=== PATIENT | male | born 1945 | race Caucasian/White ===

== ENCOUNTER 2017-01-16 05:36 | Emergency (ER) | payer OTHER, BC ==
[~2017-01-16] VITALS: Ht 177.8 cm; Wt 125.3 kg
[~2017-01-16 05:36] MED LIST: ASPCH81X PO; LISIPOW PO; LPT40 PO
[2017-01-16 05:38] VITALS: TEMP 36.5; Ht 177.8 cm; Wt 125.3 kg
[2017-01-16] MEDS ORDERED: ALBUT/IPRATROP 3MG/0.5MG NEB 3 ML VIAL INH STA (05:54)
[2017-01-16 06:39] VITALS: O2SAT 95
[2017-01-16 06:44] VITALS: PULSE 69; O2SAT 96
--- NOTE | 2017-01-16 06:46 | DIAGNOSTIC IMAGING REPORT ---
RIGHT RIBS UNILATERAL WITH PA CHEST CLINICAL HISTORY: Right rib pain. Cough. COMPARISON STUDY: No previous studies for comparison. FINDINGS: The erect chest reveals no pneumothorax. There is no lobar consolidation. There is mild basilar interstitial thickening. There is a calcified granuloma the right lung base. No right-sided rib fractures are visualized. IMPRESSION: No evidence of pneumothorax. No right-sided rib fractures are visualized. Electronically signed by: Tigre Emerson M.D. 01/16/2017 6:44 AM Dictated Date/Time: 01/16/2017 6:44 AM
[2017-01-16 06:56] LABS: BASO % 0.1 %; BASO ABS # 0.01 K/uL (0-0.2); COMPLETE YES; EOS % 1.9 %; IG% 0.1 %; LYMPH % 15.3 %; LYMPH ABS # 1.29 K/uL (1.2-3.4); MEAN CELL VOLUME 90.1 fL (80-100); MEAN CORPUSCULAR HEMOGLOBIN 30.9 pg (25-34); MEAN CORPUSCULAR HGB CONC 34.4 g/dl (32-36); MEAN PLATELET VOLUME 10.3 fL (7.4-10.4); MONO % 14.2 %; NEUT % 68.4 %; PLATELET COUNT 336 K/uL (130-400); RED BLOOD COUNT 4.33 M/uL (4.7-6.1); WHITE BLOOD COUNT 8.44 K/uL (4.8-10.8)
[2017-01-16 07:15] LABS: BUN/CREATININE RATIO 14.2 (10-20); CALCIUM 8.4 mg/dl (8.5-10.1); CREATININE 0.81 mg/dl (0.60-1.40); POTASSIUM 3.8 mmol/L (3.5-5.1)
[2017-01-16 07:20] LABS: ALB/GLOB RATIO 0.9 (0.9-2); CKMB/CK RATIO 0.6 (0-3.0)
[2017-01-16] MEDS ORDERED: OXYC-57 PO (07:34)
--- NOTE | 2017-01-16 07:36 | EMERGENCY ROOM VISIT NOTE ---
History First contact with patient: 05:43 Chief Complaint: COUGH Stated Complaint: COUGH, PAIN RIGHT BELOW RIBS Nursing Triage Summary: cough for a week, on abx for 2 days, developed right rib pain today after coughing History of Present Illness The patient is a 71 year old male who presents to the Emergency Department by private vehicle for evaluation of his ongoing cough with RIGHT sided rib pain. He has had a cough for the past few weeks. He was seen at his primary care provider's office on Friday and prescribed azithromycin as well as Tessalon Perles. He reports that over the last few days he has coughed so hard that he developed pain to the anterior aspect of the RIGHT-sided ribs. He reports pain with cough as well as with movement and touch. He only has pain with the deep cough and touch, however. He reports no pain at rest. He rates his current discomfort as 0/10. He denies any fevers, chills, headaches, dizziness, lightheadedness, left-sided chest pain, palpitations, shortness of breath, hemoptysis, nausea, vomiting, or abdominal pain. Review of Systems A complete 10-point Review of Systems was discussed with the patient, with pertinent positives and negatives listed in the History of Present Illness. All remaining Review of Systems questions can be considered negative unless otherwise specified. Past Medical/Surgical History Medical Problems: (1) No Known Active Medical Problems Family History Cancer Lung disease Stroke Social History Smoking Status: Former Smoker Smokeless Tobacco Use: No Drug Use: none Marital Status: Housing Status: lives with family Occupation Status: employed Current/Historical Medications Scheduled Aspirin (Aspirin Chewable), 81 MG PO DAILY Atorvastatin (Atorvastatin Calcium), 20 MG PO DAILY Azithromycin (Azithromycin), 1 TAB PO DIRECTED Benzonatate (Tessalon Perles), 200 MG PO DIRECTED Lisinopril (Bulk) (Lisinopril), 5 MG PO DAILY Scheduled PRN Oxycodone/Acetaminophen 5MG/325MG (Percocet 5MG/325MG), 1-2 TABS PO Q6 PRN for Pain Allergies Coded Allergies: Acetaminophen (Unverified Allergy, Severe, GI ISSUES, 01/16/17) Oxycodone (Unverified Allergy, Severe, GI ISSUES, 01/16/17) Physical Exam Vital Signs Date Time Temp Pulse Resp B/P Pulse Ox O2 Delivery O2 Flow Rate FiO2 01/16/17 07:45 139/83 01/16/17 06:44 69 18 141/91 96 Room Air 01/16/17 06:39 95 Room Air 01/16/17 06:26 77 01/16/17 06:09 94 Room Air 01/16/17 05:38 36.5 86 20 165/88 93 Room Air Pain Rating (0-10): 0 Physical Exam VITAL SIGNS - Vital signs and nursing notes were reviewed. GENERAL - 71-year-old male appearing his stated age who is in no acute distress. Communicates well with provider and answers questions appropriately. LUNGS - Chest wall symmetric without accessory muscle use, intercostals retractions, or central cyanosis. Normal vesicular breath sounds CTA B/L. No wheezes, rales, or rhonchi appreciated. CARDIAC - RRR with S1/S2. No murmur, rubs, or gallops appreciated. Moderate reproducible tenderness to palpation appreciated over the anterior lower RIGHT ribs. ABDOMEN - Abdominal contour obese and without pulsations or visible masses. BS normoactive all four quadrants. No tenderness, palpable masses, hepatosplenomegaly, or ascites noted. EXTREMITIES - No clubbing or peripheral cyanosis. No pretibial edema present. +3 /5 radial and dorsalis pedis pulses palpated throughout. +5/5 strength noted in UE/LE bilaterally. NEUROLOGIC - Cranial nerves II through XII grossly intact. Sensory intact to light touch throughout. PSYCH - A&Ox3 and cooperates fully with examiner. Pt is very pleasant and interacts well with examiner. Medical Decision & Procedures ER Provider Diagnostic Interpretation: Radiological imaging and reports were reviewed by myself. Radiologist's Interpretation as follows: RIGHT RIBS UNILATERAL WITH PA CHEST CLINICAL HISTORY: Right rib pain. Cough. COMPARISON STUDY: No previous studies for comparison. FINDINGS: The erect chest reveals no pneumothorax. There is no lobar consolidation. There is mild basilar interstitial thickening. There is a calcified granuloma the right lung base. No right-sided rib fractures are visualized. IMPRESSION: No evidence of pneumothorax. No right-sided rib fractures are visualized. Laboratory Results 01/16/17 06:30 Red Blood Count 4.33, Mean Corpuscular Volume 90.1, Mean Corpuscular Hemoglobin 30.9, Mean Corpuscular Hemoglobin Concent 34.4, Mean Platelet Volume 10.3, Neutrophils (%) (Auto) 68.4, Lymphocytes (%) (Auto) 15.3, Monocytes (%) (Auto) 14.2, Eosinophils (%) (Auto) 1.9, Basophils (%) (Auto) 0.1, Neutrophils # (Auto ) 5.77, Lymphocytes # (Auto) 1.29, Monocytes # (Auto) 1.20, Eosinophils # (Auto ) 0.16, Basophils # (Auto) 0.01 01/16/17 06:30 Test 01/16/17 06:30 01/16/17 06:39 White Blood Count 8.44 K/uL (4.8-10.8) Red Blood Count 4.33 M/uL (4.7-6.1) Hemoglobin 13.4 g/dL (14.0-18.0) Hematocrit 39.0 % (42-52) Mean Corpuscular Volume 90.1 fL (80-100) Mean Corpuscular Hemoglobin 30.9 pg (25-34) Mean Corpuscular Hemoglobin Concent 34.4 g/dl (32-36) Platelet Count 336 K/uL (130-400) Mean Platelet Volume 10.3 fL (7.4-10.4) Neutrophils (%) (Auto) 68.4 % Lymphocytes (%) (Auto) 15.3 % Monocytes (%) (Auto) 14.2 % Eosinophils (%) (Auto) 1.9 % Basophils (%) (Auto) 0.1 % Neutrophils # (Auto) 5.77 K/uL (1.4-6.5) Lymphocytes # (Auto) 1.29 K/uL (1.2-3.4) Monocytes # (Auto) 1.20 K/uL (0.11-0.59) Eosinophils # (Auto) 0.16 K/uL (0-0.5) Basophils # (Auto) 0.01 K/uL (0-0.2) RDW Standard Deviation 43.5 fL (36.4-46.3) RDW Coefficient of Variation 13.1 % (11.5-14.5) Immature Granulocyte % (Auto) 0.1 % Immature Granulocyte # (Auto) 0.01 K/uL (0.00-0.02) Anion Gap 6.0 mmol/L (3-11) Est Creatinine Clear Calc Drug Dose 114.3 ml/min Estimated GFR () 105.1 Estimated GFR (Non- 90.7 BUN/Creatinine Ratio 14.2 (10-20) Calcium Level 8.4 mg/dl (8.5-10.1) Total Bilirubin 0.6 mg/dl (0.2-1) Aspartate Amino Transf (AST/SGOT) 37 U/L (15-37) Alanine Aminotransferase (ALT/SGPT) 45 U/L (12-78) Alkaline Phosphatase 104 U/L (45-117) Total Creatine Kinase 862 U/L (39-308) Creatine Kinase MB 4.9 ng/ml (0.5-3.6) Creatine Kinase MB Ratio 0.6 (0-3.0) Total Protein 7.2 gm/dl (6.4-8.2) Albumin 3.5 gm/dl (3.4-5.0) Globulin 3.7 gm/dl (2.5-4.0) Albumin/Globulin Ratio 0.9 (0.9-2) Bedside Troponin I 0.010 ng/ml (0-0.045) Medications Administered Medications (Trade) Dose Ordered Sig/Kei Route Start Time Stop Time Status Last Admin Dose Admin Albuterol/ Ipratropium (Duoneb) 3 ml NOW STAT INH 01/16/17 05:54 01/16/17 05:59 DC 01/16/17 06:42 3 ML Procedure Patient was placed on the meat team member and monitored throughout the entire extent of their stay. In addition, the patient's pulse oximetry was monitored throughout the entire stay. Any abnormalities or aberrancies were addressed appropriately. ECG Indication: chest pain Rate (beats per minute): 71 Rhythm: normal sinus Findings: no acute ischemic change, no ectopy Change: no significant change (from 09/01/2014.) ED Course Patient was seen and evaluated by myself. Patient declines anything for pain while in the emergency department. Labs were drawn, saline lock in place. X- ray of the ribs and chest were obtained. Laboratory results demonstrate no acute leukocytosis, worrisome anemia, or bandemia. The patient has no significant electrolyte abnormalities. Cardiac enzymes are otherwise unremarkable. Troponin is negative. Patient was treated with DuoNeb while in the emergency department. The patient feels much better at this time. The patient was provided an incentive spirometer for home. He'll continue his antibiotics. He was provided Percocet for breakthrough pain at home. The patient was educated on worrisome symptoms for return visit to the emergency department. Patient discharged home afebrile and in good condition. Medical Decision Given the patient's presentation and stated complaints, I did elect to perform the above-mentioned workup. The patient presents today with pain after coughing to the RIGHT-sided lower ribs. He has no fever leukocytosis. EKG is unremarkable. Chest x-ray demonstrates no focal consolidations or worrisome findings otherwise. Patient is likely experiencing musculoskeletal discomfort from strain from coughing. He is provided pain medication for home. He will continue his antibiotics as prescribed by his primary care provider. He will return for any changing or worsening symptoms. Patient discharged home in good condition. In the evaluation and treatment of this patient, the following differential diagnoses were considered: MT, ASC, Dysrhythmia, Angina, Mediastinitis, GERD, Esophagitis, PE, Pneumonia, Bronchitis, Costochondritis, Rib Fracture, Zoster. Impression Primary Impression: Rib sprain Additional Impressions: Acute bronchitis Cough Departure Information Dispostion Home / Self-Care Condition GOOD Prescriptions Oxycodone/Acetaminophen 5MG/325MG (PERCOCET 5MG/325MG) Tab 1-2 TABS PO Q6 Y for Pain, #14 TAB For Initial Treatment Prov: Tadeo Sung PA-C 01/16/17 Referrals Mayur Sanchez M.D. (PCP) Patient Instructions ED Contusion Vs Minor Fx Rib, My [facility] Additional Instructions You have been treated in the Emergency Department for Rib Pain. You have been prescribed Percocet to be used for pain control. This is a narcotic medication. You cannot drive or consume alcohol while on this medicine. This medicine should only be used for pain that cannot be controlled with [id number] pain medicines. For pain control, you can use the following byti-dij-hvoskui medicines (if >12 yo): - Regular strength (325mg/tab) Tylenol (acetaminophen) 2 tabs every 4-6 hours as needed. Do not exceed 12 tablets in a 24 hour period. Avoid taking more than 4 grams (4000 mg) of Tylenol per day. This includes any other sources of acetaminophen you may take on a regular basis. - Regular strength (200 mg/tab) Advil (ibuprofen) 1-2 tabs every 4-6 hours as needed. Do not exceed a dose of 3200 mg per day. If this is an acute injury, ice can be applied to the area of pain for the first 3 days to help decrease pain and inflammation. After the first 3 days, a heating pad can be used over the area for continued soothing relief. You should schedule a follow-up appointment in 2-3 days with your Primary Care Provider for further evaluation and treatment of your rib pain. Please use the incentive spirometer several times per hour while awake to help prevent the development of pneumonia. Hugging a pillow while coughing or sneezing can help to reduce your pain. Be sure to continue taking occasional deep breaths to help expand your lungs to reduce the risk of developing pneumonia. Return to the Emergency Department if your current symptoms worsen despite treatment course outlined above, or if you develop any of the following symptoms : intractable pain despite aforementioned treatment course, loss of control of your bowel or bladder, numbness or tingling in your groin, or development of a fever. Problem Qualifiers Primary Impression: Rib sprain Encounter type: initial encounter Qualified Codes: S23.41XA - Sprain of ribs , initial encounter Additional Impressions: Acute bronchitis Bronchitis organism: unspecified organism Qualified Codes: J20.9 - Acute bronchitis, unspecified
[2017-01-16 07:45] VITALS: BP 139/83
[2017-01-16] MEDS ORDERED: ZPAK PO (22:51)
[2017-01-16] MEDS ORDERED: BENZ200C59 PO (22:51)
[2017-01-16] MEDS ORDERED: ONDA4TAB10 SL (23:44)
== END 2017-01-16 07:45 | disposition home or self-care (01) ==
LOC: C.EDB 05:37
DX: S23.41XA Sprain of ribs, initial encounter (principal); X58.XXXA Exposure to other specified factors, initial encounter; J20.9 Acute bronchitis, unspecified; Z87.891 Personal history of nicotine dependence; Z79.82 Long term (current) use of aspirin; Z79.899 Other long term (current) drug therapy; Z80.9 Family history of malignant neoplasm, unspecified; Z82.3 Family history of stroke; R78.1 Finding of opiate drug in blood; R11.2 Nausea with vomiting, unspecified; Z88.5 Allergy status to narcotic agent; Z88.6 Allergy status to analgesic agent

== ENCOUNTER 2017-01-16 20:37 | Emergency (ER) | payer OTHER, BC ==
[~2017-01-16] VITALS: Ht 177.8 cm; Wt 125.0 kg
[~2017-01-16 20:37] MED LIST changes: +OXYC-57 PO
[2017-01-16 20:57] VITALS: TEMP 36.6; Ht 177.8 cm; Wt 125.0 kg
[2017-01-16] MEDS ORDERED: TRAMADOL HCL 50 MG TAB PO STA (21:57)
[2017-01-16] MEDS ORDERED: ONDANSETRON 4MG OD TAB PO ONE (22:00)
[2017-01-16] MEDS ORDERED: BENZ200C59 PO (22:51)
[2017-01-16] MEDS ORDERED: ZPAK PO (22:51)
--- NOTE | 2017-01-16 23:06 | DIAGNOSTIC IMAGING REPORT ---
ABDOMINAL ULTRASOUND, RIGHT UPPER QUADRANT HISTORY: Right upper quadrant pain. COMPARISON: None. FINDINGS: This exam is significantly compromised by suboptimal penetration related to overlying bowel gas. Liver is sonographically normal although partially obscured. There is no biliary ductal dilatation. The gallbladder is mildly distended. There is no gallbladder wall thickening. No gallstones are identified. The pancreas is obscured. There is no right hydronephrosis. IMPRESSION: 1. Study compromised by suboptimal penetration related to overlying bowel gas. 2. No gallstones identified. No gallbladder wall thickening. Mild gallbladder distention. 3. Obscured pancreas. Electronically signed by: Sunny Bhat M.D. 01/16/2017 11:05 PM Dictated Date/Time: 01/16/2017 11:03 PM
--- NOTE | 2017-01-16 23:41 | EMERGENCY ROOM VISIT NOTE ---
ED Visit Note First contact with patient: 21:47 Patient was seen by our PA/[employer]. I was involved in the patient's care and did evaluate the patient myself. I was involved in the care throughout the ER stay. The patient appears to be having nausea from the Percocet medication. He feels better with Zofran. Gallbladder ultrasound is unremarkable. He does appear stable for discharge.
[2017-01-16] MEDS ORDERED: ONDA4TAB10 SL (23:44)
[2017-01-16] MEDS ORDERED: ONDANSETRON HOME PACK 4MG OD TAB PO ONE (23:45)
--- NOTE | 2017-01-16 23:45 | EMERGENCY ROOM VISIT NOTE ---
History First contact with patient: 21:47 Chief Complaint: VOMITING Stated Complaint: FOLLOW UP FROM AM VISIT, PAIN CAUSES VOMIT Nursing Triage Summary: Pt reports was here this am and dx with rib sprain and bronchitis. Pt reports he was prescribed percocet and now he is vomiting and its not helping his pain. History of Present Illness The patient is a 71 year old male who presents to the Emergency Department by private vehicle for evaluation of his ongoing RIGHT-sided rib pain. In addition , the patient now reports having vomiting after taking his Percocet. He reports feeling nauseated after taking each of his 3 doses of the Percocet. He took his third dose without eating any food and became extremely nauseous and vomited. This prompted the patient's visits the emergency department. He reports persistent pain with cough as well as with movement. He reports no fevers or chills. He denies any worsening symptoms and actually reports that her pain has improved somewhat from his initial presentation today. The patient rates his current discomfort as a 3/10. He denies any fevers, chills, headaches, dizziness, lightheadedness, hemoptysis, hematemesis, hematochezia, melena, hematuria, or dysuria. He denies any LEFT sided chest pain, palpitations, or shortness of breath. Review of Systems A complete 10-point Review of Systems was discussed with the patient, with pertinent positives and negatives listed in the History of Present Illness. All remaining Review of Systems questions can be considered negative unless otherwise specified. Past Medical/Surgical History Medical Problems: (1) No Known Active Medical Problems Family History Cancer Lung disease Stroke Social History Smoking Status: Former Smoker Smokeless Tobacco Use: No Marital Status: Housing Status: lives with family Occupation Status: employed Current/Historical Medications Scheduled Aspirin (Aspirin Chewable), 81 MG PO DAILY Atorvastatin (Atorvastatin Calcium), 20 MG PO DAILY Azithromycin (Azithromycin), 1 TAB PO DIRECTED Benzonatate (Tessalon Perles), 200 MG PO DIRECTED Lisinopril (Bulk) (Lisinopril), 5 MG PO DAILY Scheduled PRN Ondasetron Odt (Zofran Odt), 1 TAB SL Q6 PRN for Nausea or Vomiting Oxycodone/Acetaminophen 5MG/325MG (Percocet 5MG/325MG), 1-2 TABS PO Q6 PRN for Pain Allergies Coded Allergies: Acetaminophen (Unverified Allergy, Severe, GI ISSUES, 01/16/17) Oxycodone (Unverified Allergy, Severe, GI ISSUES, 01/16/17) Physical Exam Vital Signs Date Time Temp Pulse Resp B/P Pulse Ox O2 Delivery O2 Flow Rate FiO2 01/16/17 23:54 81 18 144/87 91 01/16/17 20:57 36.6 83 20 170/89 93 Room Air Pain Rating (0-10): 6 Physical Exam VITAL SIGNS - Vital signs and nursing notes were reviewed. GENERAL - Well nourished, well developed 71-year-old male in no acute distress. Pt communicates well with provider and answers questions appropriately. LUNGS - Chest wall symmetric without accessory muscle use, intercostals retractions, or central cyanosis. Normal vesicular breath sounds CTA B/L. No wheezes, rales, or rhonchi appreciated. Reproducible tenderness.patient to the RIGHT-sided anterior lower ribs. CARDIAC - RRR with S1/S2. No murmur, rubs, or gallops appreciated. ABDOMEN - Abdominal contour protuberant without pulsations or visible masses. BS normoactive all four quadrants. No tenderness, palpable masses, hepatosplenomegaly, or ascites noted. Medical Decision & Procedures ER Provider Diagnostic Interpretation: Radiological imaging and reports were reviewed by myself. Radiologist's Interpretation as follows: ABDOMINAL ULTRASOUND, RIGHT UPPER QUADRANT HISTORY: Right upper quadrant pain. COMPARISON: None. FINDINGS: This exam is significantly compromised by suboptimal penetration related to overlying bowel gas. Liver is sonographically normal although partially obscured. There is no biliary ductal dilatation. The gallbladder is mildly distended. There is no gallbladder wall thickening. No gallstones are identified. The pancreas is obscured. There is no right hydronephrosis. IMPRESSION: 1. Study compromised by suboptimal penetration related to overlying bowel gas. 2. No gallstones identified. No gallbladder wall thickening. Mild gallbladder distention. 3. Obscured pancreas. Medications Administered Medications (Trade) Dose Ordered Sig/Kei Route Start Time Stop Time Status Last Admin Dose Admin Tramadol HCl (Ultram Tab) 50 mg ONE STAT PO 01/16/17 21:57 01/16/17 21:59 DC 01/16/17 22:04 50 MG Ondansetron HCl (Zofran Odt) 4 mg ONE ONCE PO 3/30/17 22:00 01/16/17 22:01 DC 01/16/17 22:05 4 MG ED Course Patient was seen and evaluated by myself. I'm familiar with this patient from previous visit. Patient received 1 Zofran and one Ultram orally. Ultrasound of the gallbladder was obtained. Imaging results above. Case was discussed with my attending physician who independently evaluated the patient and agrees with diagnostic approach and treatment plan. The patient was instructed on today's findings. He will continue his Percocet, but was provided Zofran for persistent symptoms. He was educated on worrisome symptoms for return visit to the emergency department. Patient discharged home in good condition. Medical Decision Given the patient's presentation and stated complaints, I did elect to perform the above-mentioned workup. The patient reports that his pain is actually improved recently, however he has not had nausea and vomiting after taking Percocet. He was provided Zofran moderate result of symptoms. Clinically, the patient appears very well. He had labs and imaging studies performed today which were otherwise unremarkable. Ultrasound industries no acute findings. He is provided Zofran to be used for break through symptoms of nausea in association with his Percocet use. The patient will follow-up with his primary care provider from today's visit or return for any changing/worsening symptoms. Patient discharged home in good condition. In the evaluation and treatment of this patient, the following differential diagnoses were considered: Appendicitis, Diverticulitis, Diverticulosis, Colitis , Ischemic Colitis, Inflammatory Bowel Disease, Irritable Bowel Disease, Testicular Torsion, Kidney Stone, Pyelonephritis, Hydronephrosis, Cholecystitis , Ascending Cholangitis, Choledocholithiasis, GERD. Impression Primary Impression: Drug-induced nausea and vomiting Additional Impression: Rib pain on right side Departure Information Dispostion Home / Self-Care Condition GOOD Prescriptions Ondasetron Odt (ZOFRAN ODT) 4 Mg Tab 1 TAB SL Q6 Y for Nausea or Vomiting for 5 Days, #20 TAB Prov: Tadeo Sung, SHERMAN 01/16/17 Referrals Mayur Sanchez M.D. (PCP) Patient Instructions My [facility] Additional Instructions Please continue discharge instructions from yesterday. Zofran as needed for any nausea or vomiting. Follow-up with your primary care provider as discussed. Return for any changing or worsening symptoms. Problem Qualifiers
[2017-01-16 23:54] VITALS: BP 144/87; PULSE 81; O2SAT 91
== END 2017-01-16 23:50 | disposition home or self-care (01) ==
LOC: C.EDB 20:39 → C.EDC 23:50
DX: R78.1 Finding of opiate drug in blood (principal); R11.2 Nausea with vomiting, unspecified; Z79.82 Long term (current) use of aspirin; Z79.899 Other long term (current) drug therapy; Z87.891 Personal history of nicotine dependence; Z80.9 Family history of malignant neoplasm, unspecified; Z82.3 Family history of stroke; Z88.5 Allergy status to narcotic agent; Z88.6 Allergy status to analgesic agent

== ENCOUNTER 2018-12-31 08:08 | Observation (INO) ==
--- NOTE | 2018-12-21 15:40 | PAT Medication Instructions ---
Medication Instructions Date of Service December 21, 2018 Home Medications Calcium D3 Plus 1 tab PO QPM albuterol sulfate [ProAir HFA] 2 puff INHALATION QID PRN aspirin [Aspirin Low Dose] 81 mg PO QAM cholecalciferol (vitamin D3) 2,000 unit PO QAM lisinopril 5 mg PO QAM magnesium 250 mg PO QPM pravastatin 40 mg PO QAM ASK your prescriber and surgeon aspirin [Aspirin Low Dose] 81 mg PO QAM DO NOT take the morning of surgery Calcium D3 Plus 1 tab PO QPM cholecalciferol (vitamin D3) 2,000 unit PO QAM lisinopril 5 mg PO QAM Take morning of surgery With a small sip of water, OTHERWISE NOTHING TO EAT OR DRINK AFTER MIDNIGHT: albuterol sulfate [ProAir HFA] 2 puff INHALATION QID PRN (use if needed; please bring with you to hospital day of surgery if possible) pravastatin 40 mg PO QAM Take evening before surgery Calcium D3 Plus 1 tab PO QPM albuterol sulfate [ProAir HFA] 2 puff INHALATION QID PRN (if needed) magnesium 250 mg PO QPM Other Notes If you have any questions please call us at [phone] or [phone] or [phone] or [phone]
--- NOTE | 2018-12-22 14:19 | Anesthesiology Consultation ---
Date of Service December 22, 2018 Assessment & Plan (1) Encounter for pre-operative examination: - Cardio= 12/01/18= "doing well." Pravastatin dose increased. F/U 6 months recommended - Continue ASA perioperatively per surgeon (per patient). Chart Review Chart Review: Acceptable Risk for Surgery and Patient seen in Pre Admission Testing Teaching & Discussion Pre-Anesthesia Teaching/Discussion Notes: Instructed NPO after midnight before surgery,except medications with 15 cc of water. Medication instructions provided according to the PAT guidelines. History Surgery Operation Date: 12/31/18 07:00 Proposed Procedures p Laparoscopic Abdominal Wall Repair with mesh, Possible Open, Possible Right Thoractomy - Gregorio Buitrago MD, FACS Height/Weight Height: 5 ft 10 in Weight: 120.7 kg Allergies Allergy/AdvReac Type Severity Reaction Status Date / Time No Known Allergies Allergy Verified 12/18/18 12:07 Medications Home Medications Medication Instructions Recorded Confirmed Last Taken Ca-D3-mag wy-kikt-[id number]-vivienne-bor 1 tab PO QPM 12/18/18 12/18/18 Unknown [Calcium 600-D3 Plus] albuterol sulfate [ProAir HFA] 2 puff INHALATION QID PRN 12/18/18 12/18/18 Unknown aspirin [Aspirin Low Dose] 81 mg PO QAM 12/18/18 12/18/18 Unknown cholecalciferol (vitamin D3) 2,000 unit PO QAM 12/18/18 12/18/18 Unknown [Vitamin D3] lisinopril 5 mg PO QAM 12/18/18 12/18/18 Unknown magnesium 250 mg PO QPM 12/18/18 12/18/18 Unknown pravastatin 40 mg PO QAM 12/18/18 12/18/18 Unknown Past Medical History Medical History CAD (coronary artery disease) 3 VESSEL NON-OBSTRUCTIVE DISEASE PER 09/2014 CARDIAC CATH History of skin cancer NO CHEMO OR RADIATION Hx of bronchitis 09/2018 Hyperlipidemia Hypertension Obesity Past Surgical History Surgical History History of cardiac cath 4+ YEARS AGO History of right hip replacement Past Anesthesia History No Hx of Anesthesia Complications and No Family Hx of Anesthesia Complications History of PONV No Motion Sickness Screening History of Motion Sickness: No Social History Smoking Status: Former smoker tobacco type: cigarettes Smoking End Date: QUIT 45+ YEARS AGO; INTERMITTENT 1/2 PPD X SEVERAL YEARS Hx Alcohol Use: Yes Alcohol type: beer alcohol intake frequency: 0-2 drinks per day (2-3 BEERS A FEW TIMES/WEEK) Hx Substance Use: No Exercise / Class Metabolic Activity II 4-5 Yardwork/Stairs/Walk up hill (PATIENT DENIES CHEST PAIN/SOB WITH ONE FLIGHT OF STAIRS) Review of Systems Patient denies chest pain, shortness of breath, cough, wheezing, palpitations. Physical Exam Vital Signs VITALS BP 135/77 P 76 TEMP 98.4 SP02 94%RA RESP 14 PHYSICAL Full neck and c-spine range of motion. Full TMJ range of motion. TMD 2.5 finger breaths Mallampati Score 3 Dentition: intact, implants on sides, several crowns Lungs: clear throughout to auscultation Cardiac: regular rate and rhythm, no murmurs noted Spine: normal Carotid arteries: negative bruit Extremities: no edema Testing Electrocardiogram Date: 09/02/18 Findings: + NSR @ (61) Chest X-Ray Date: 12/22/18 Findings: + NAD Calcified granuloma noted at the right lung base. Echocardiogram Date: 09/01/14 LVEF 50-55%. No RWMA. Grade I DD. No significant valvular disease. Stress Test Date: 09/01/14 Rest LVEF 55%. Test inconclusive as unable to reach 85%. Patient reached 75% MPHR. 5.60 METS. Subsequent cardiac cath done 09/2014 Cardiac Catheterization Date: 10/05/14 pLAD 10%. mid CX 50%. RCA 10-80%. Ramus 80%. Medical therapy recommended. Laboratory Results 12/22/18 14:36 12/22/18 14:36 Blood Type O Positive 12/22/18 14:36 Antibody Screen NEGATIVE 12/22/18 14:36
--- NOTE | 2018-12-22 15:01 | XRay Report ---
XR chest Pre-admission PA/Lat CLINICAL HISTORY: 73 years-old Male presenting with preoperative assessment. TECHNIQUE: PA and lateral views of the chest were obtained. COMPARISON: Chest CT from 09/17/2018 and chest x-ray from 01/16/2017. FINDINGS: Cardiomediastinal silhouette normal. Calcified granuloma noted at the right lung base. No other focal opacity. No pleural effusion or pneumothorax. Osseous structures normal. Upper abdomen normal. IMPRESSION: 1. No acute cardiopulmonary disease. Electronically signed by: Kraig Weinberg M.D. 12/22/2018 2:59 PM
[2018-12-22 15:06] LABS: Basophils # (auto) 0.03 K/uL (0-0.2); Basophils % (auto) 0.3 %; Eosinophils # (auto) 0.37 K/uL (0-0.5); Eosinophils % (auto) 3.5 %; Hematocrit (blood only) 44.7 % (42-52); Immature Granulocytes # (auto) 0.01 K/uL (0.00-0.02); Immature Granulocytes % (auto) 0.1 %; Lymphocytes # (auto) 2.11 K/uL (1.2-3.4); Lymphocytes % (auto) 19.7 %; Mean Corpuscular Hgb Conc 33.6 g/dL (32-36); Mean Corpuscular Volume 94.1 fL (80-100); Mean Platelet Volume 10.1 fL (7.4-10.4); Monocytes # (auto) 0.88 K/uL (0.11-0.59); Monocytes % (auto) 8.2 %; Neutrophils # (auto) 7.32 K/uL (1.4-6.5); Neutrophils % (auto) 68.2 %; Platelet Count 329 K/uL (130-400); RDW Coefficient of Variation 13.7 % (11.5-14.5); RDW Standard Deviation 47.2 fL (36.4-46.3); Red Blood Count 4.75 M/uL (4.7-6.1); White Blood Count 10.72 K/uL (4.8-10.8)
[2018-12-22 15:54] LABS: BUN Creatinine Ratio 15.5 (10-20); Calcium 8.5 mg/dl (8.5-10.1); Est GFR (African American) 97.9; Est GFR (Non-African American) 84.5; Potassium 4.4 mmol/L (3.5-5.1)
[~2018-12-31 08:08] MED LIST changes: +ACETAMINOPHEN 1000 MG/100 ML IV IV ONE; -ASPCH81X PO; -LISIPOW PO; -LPT40 PO; +LR 15ML/HR IV SCH; -OXYC-57 PO
--- NOTE | 2018-12-31 09:31 | History & Physical Bridge Note ---
Date of Service December 31, 2018 History & Physical Bridge Note I have examined the patient, reviewed the History & Physical and in the interval since the performance of the History & Physical I have noted the following changes of clinical significance: no changes noted pt marked all questions answered SO at bedside
[2018-12-31] MEDS ORDERED: MIDAZOLAM HCL 1 MG/ML 2ML VIAL ONE (09:37)
[2018-12-31] MEDS ORDERED: fentaNYL citrate 100 MCG/2 ML VIAL ONE ×3 (09:37→13:36)
[2018-12-31] MEDS ORDERED: BUPIVACAINE 0.5 % 5 MG/1 ML PF 10ML VIAL ONE (09:38)
[2018-12-31] MEDS ORDERED: BUPIVACAINE 0.5 % 5 MG/1 ML MPF 30ML VIAL ONE (09:55)
[2018-12-31] MEDS ORDERED: BACITRACIN INJ 50,000 UNIT VIAL ONE (09:55)
[2018-12-31] MEDS ORDERED: PHENYLEPHRINE 100MCG/ML 5ML SYR ONE (11:20)
[2018-12-31] MEDS ORDERED: LIDOCAINE HCL 2% 2 ML VIAL/AMP(20MG/ML) INFIL ONE (11:20)
[2018-12-31] MEDS ORDERED: ROCURONIUM BROMIDE 10 MG/ML 5 ML VIAL ONE ×7 (11:20→11:45)
[2018-12-31] MEDS ORDERED: ONDANSETRON INJ 2 MG/ML 2 ML VIAL ONE (11:20)
[2018-12-31] MEDS ORDERED: DEXAMETHASONE SOD INJ 4 MG/ML VIAL ONE (11:20)
[2018-12-31] MEDS ORDERED: PROPOFOL IV EMULSION 10 MG/ML 20 ML VIAL IV ONE (11:20)
[2018-12-31] MEDS ORDERED: CEFAZOLIN 2000MG 2,000 MG/15 ML SYR IV ONE (11:23)
--- NOTE | 2018-12-31 11:23 | Progress Note ---
Date of Service December 31, 2018 Subjective Patient was induced and SANTOSH was placed. Due to very sharp angle of L main bonchus and small caliber of main stem bronchi, we were unable to pass either a 39 or a 37F SANTOSH in adequate position for one lung ventilation. After multiple attempts, a 7.5 single leumen ETT was placed in the trachea. I spoke with Dr Buitrago that if one lung ventilation is needed during the procedure, we will attempt to pass the single leumen tube in to the main stem bronchus, or potent ially use a R sided bronchial shonna. Physical Exam Vital Signs (Past 24 Hours): Last Vital Signs Temp 36.7 C 12/31/18 08:50 Pulse 79 12/31/18 08:50 Resp 20 12/31/18 08:50 BP 154/88 H 12/31/18 08:50 Pulse Ox 94 12/31/18 08:50
--- NOTE | 2018-12-31 12:09 | Anesthesiology Progress Note ---
Date of Service December 31, 2018 Physical Exam Vital Signs Last Vital Signs Temp 36.7 C 12/31/18 08:50 Pulse 79 12/31/18 08:50 Resp 20 12/31/18 08:50 BP 154/88 H 12/31/18 08:50 Pulse Ox 94 12/31/18 08:50 Results & Data Medications Administered Lactated Ringer's (Lr) 1,000 mls @ 15 mls/hr IV .Q24H CABRERA Stop: 01/01/19 05:59 Last Admin: 12/31/18 09:11 Dose: 15 mls/hr Documented by: [id number]
[2018-12-31] MEDS ORDERED: NEOSTIGMINE METHYLSULFATE 5 MG/5 ML SYR ONE (12:45)
[2018-12-31] MEDS ORDERED: GLYCOPYRROLATE 0.2 MG/ML VIAL ONE (12:45)
--- NOTE | 2018-12-31 12:48 | Post Operative Brief Note ---
Immediate Post Op Note v1 Date of Surgery December 31, 2018 Pre & Post Diagnosis Operation Date: 12/31/18 09:20 Pre-Op Diagnosis: Traumatic abdominal wall hernia Post-Op Diagnosis: Traumatic abdominal wall hernia Procedure Operation Date: 12/31/18 09:20 Actual Procedures p Laparoscopic Abdominal Wall Repair with SurgMesh and Open Marlex(Right) - Gregorio Buitrago MD, FACS Surgeon Gregorio Buitrago MD, FACS [employer] Inspector b magui SALMERON Estimated Blood Loss 40 Findings Consistent with Post-Op Diagnosis Drains Roa Catheter (16fr roa catheter inserted without difficulty by Christine Waters([facility] medical student II) under the direct supervision of ST. Ruma Ora is patent and draining clear yellow urine. Anesthesia to monitor urine output intraoperatively.)
--- NOTE | 2018-12-31 13:08 | Operative Report ---
Post Operative Report Pre & Post Diagnosis Operation Date: 12/31/18 09:20 Pre-Op Diagnosis: Traumatic abdominal wall hernia Post-Op Diagnosis: Traumatic abdominal wall hernia Procedure Operation Date: 12/31/18 09:20 Actual Procedures p Laparoscopic Abdominal Wall Repair with SurgMesh and Open Marlex(Right) - Gregorio Buitrago MD, FACS Patient was brought into the theater supine position attempt to place a double- lumen endotracheal tube by anesthesia was unsuccessful therefore we went on with dilated we had anticipated that the possibility that the patient may need thoracoscopy for this procedure Wolf catheter was inserted the patient had been placed on a beanbag and rotated to the left lateral position the abdomen and chest was prepped Betadine scrub and solution properly draped systemic antibiotics given timeout was had at this point I made a small incision supraumbilically sufficient enough to place a Veress needle followed by 5 mm trocar followed by the scope attention was turned to the right upper quadrant where the patient had a significant traumatic hernia involving the lower rib cage on the right hernia extending approximately 15 cm or so with significant intercostal separation radiographically the patient seem to have had the right colon and the cecum and the liver in that area but as we anticipated we thought there may be no adhesions which there were not in this position we were able to identify the defect of the liver and cornual away from it we outlined that by placing a needle through the skin into the defects and were able to identify probably a 15 cm weakness with intercostal muscle anterolateral and about 8 cm or more actually we elected at this point to bring a 15 x 20 cm surgery mesh we rolled it up and a cigarette form placed that through the umbilical opening under direct visualization when we used a Kathi clamp to outline the opening a little bit more of note we had placed 2 5 mm trochars one in the epigastric area and one in her left lower quadrant under direct visualization prior to initiating further surgery the mesh had been outlined that the smooth surface was intra-abdominally the rough surface with soft side we had marked this with a nylon suture centered the mesh in the middle of the defect in the chest cavity then used a verbal tackers to fasten it circumferentially but then closed every 3 to to 3inches nylon sutures that was coming through the abdominal wall onto the mesh taking bites of the mesh and the intermetatarsal muscle also of note prior to resolution the mass we freed some peritoneum in the superior cephalad aspect of the defect beyond the the ribs. Once this had been secured in place we then turned our attention to the outside we closed the abdominal incision using 0 Vicryl [id number] x2 the other wounds were closed with jasson at the end incision was made between the 2 ribs approximately 10-12 cm in length deepened through subcutaneous tissue we could see the intercostal muscle that had been pulled apart we at this point developed for areas attacking the Marlex mesh which in the superior rib was base by getting intercostally or periosteally were #1 PDS suture around the rib and taking bites of the Marlex mesh interruptedly we similarly placed another one proximal to that in the same rib about 3 inches away and similarly we used 2 other tacking sutures in the inferior aspect of the rib on the other side. We then used a running #2-0 nylon to tack the overlying mesh onto the intercostal muscles medially and superiorly around the rib edges and circumferentially around. Once this been performed the mesh had been trimmed it was slightly loose we then placed a #19 Ji drain #15 Ji drain through a stab wound on the medial aspect of the inferior aspect of the incision placed in the subcutaneous that the skin edge with 2-0 nylon suture 2-0 Vicryl was used in a continuous fashion to approximate the subcutaneous tissue to the mesh and jasson for skin edges dressing was applied procedure was tolerated well by the patient estimated blood loss approximately 40 cc addendumB Mauri salmeron was present throughout the procedure and helped with the exposure retraction and closure Surgeon Gregorio Buitrago MD, FACS [employer] Cleaner whit SALMERON Estimated Blood Loss 40 Findings Consistent with Post-Op Diagnosis Specimens o Description of Procedure merda I attest to the content of the Intraoperative Record and any orders documented therein. Any exceptions are noted below.
[2018-12-31] MEDS ORDERED: HYDROmorphone INJ 0.5 MG/0.5 ML SYR ONE (13:16)
[2018-12-31] MEDS ORDERED: ONDANSETRON INJ 2 MG/ML 2 ML VIAL IV PRN (13:30)
[2018-12-31] MEDS ORDERED: ATROPINE SULFATE 0.1 MG/ML 10ML SYR IV PRN (13:30)
[2018-12-31] MEDS ORDERED: PROMETHAZINE HCL 6.25 MG in SODIUM CHLORIDE 0.9% 50 ML IV PRN (13:30)
[2018-12-31] MEDS ORDERED: ePHEDrine sulfate 50 MG/ML AMP IV PRN (13:30)
[2018-12-31] MEDS: fentaNYL citrate 100 MCG/2 ML VIAL IV PRN ×4 (13:37→13:52)
[2018-12-31] MEDS ORDERED: HYDROmorphone INJ 1 MG/ML SYRINGE ONE (13:57)
[2018-12-31] MEDS ORDERED: HYDROmorphone INJ 0.5 MG/0.5 ML SYR IV PRN (14:19)
--- NOTE | 2018-12-31 14:31 | Anesthesiology Progress Note ---
Date of Service December 31, 2018 Anesthesia Post Procedure Vital Signs Vital Signs: Temp Pulse Pulse Resp BP BP Pulse Ox 12/31/18 14:25 60 11 L 145/83 H 93 12/31/18 14:15 65 18 128/92 94 12/31/18 14:05 69 15 147/81 H 94 12/31/18 13:55 69 12 156/84 H 95 12/31/18 13:45 71 18 148/85 H 94 12/31/18 13:35 75 13 157/90 H 97 12/31/18 13:25 78 11 L 138/82 97 12/31/18 13:16 36.1 C L 87 14 158/93 H 97 12/31/18 08:50 36.7 C 79 20 154/88 H 94 Pain Intensity Right Abdomen: Pain Intensity: 5 Notes Mental Status: alert / awake / arousable Patient Amnestic to Procedure: Yes Nausea / Vomiting: adequately controlled Pain: adequately controlled Airway Patency, RR, SpO2: stable & adequate BP & HR: stable & adequate Hydration State: stable & adequate Anesthetic Complications: no major complications apparent
[2018-12-31] MEDS ORDERED: MoRPHine SULFATE 4 MG/ML 1 ML CARP\\VIAL IV PRN (14:58)
[2018-12-31] MEDS ORDERED: ALBUTEROL HFA 8 GM INHALER INH PRN (15:15)
[2018-12-31] MEDS: ONDANSETRON INJ 2 MG/ML 2 ML VIAL IV PRN ×2 (15:38→19:37)
[2018-12-31] MEDS: OXYCODONE/ACETAMINOPHEN 5mg/325mg TAB PO PRN ×2 (17:06→23:57)
[2018-12-31] MEDS ORDERED: MAGNESIUM OXIDE 400 MG TAB PO SCH (21:00)
[2018-12-31] MEDS: CEFAZOLIN 2000MG 2,000 MG/15 ML SYR IV SCH (21:13)
[2018-12-31] MEDS: LACTATED RINGER'S 1,000 ML IV SCH (21:13)
[2019-01-01] MEDS: CEFAZOLIN 2000MG 2,000 MG/15 ML SYR IV SCH ×2 (03:50→10:26)
[2019-01-01] MEDS: OXYCODONE/ACETAMINOPHEN 5mg/325mg TAB PO PRN ×3 (03:50→13:31)
--- NOTE | 2019-01-01 07:33 | Surgery Progress Note ---
Date of Service January 01, 2019 Assessment & Plan (1) Hernia of abdominal wall: will remove guy drain later may be d/c if pain controlled with oral analgesics op finding and therapy discussed with pt rec pillow to side if pt gets coughing spell Subjective expected discomfort op site up and about tolerated diet last night needed cath x1 and now voiding on own Physical Exam Vital Signs (Past 24 Hours): Last Vital Signs Temp 36.8 C 01/01/19 03:31 Pulse 72 01/01/19 03:31 Resp 16 01/01/19 03:31 BP 127/87 01/01/19 03:31 Pulse Ox 94 01/01/19 03:31 Physical Exam: dressing op site fine no obvious bulge with coughing minimal Guy drainage abd neg
[2019-01-01] MEDS ORDERED: ASPIRIN 81 MG ECTAB PO SCH (09:00)
[2019-01-01] MEDS ORDERED: PRAVASTATIN SOD 40 MG TAB PO SCH (09:00)
[2019-01-01] MEDS ORDERED: LISINOPRIL 5 MG TAB PO SCH (09:00)
[2019-01-01] MEDS: LACTATED RINGER'S 1,000 ML IV SCH (10:26)
--- NOTE | 2019-01-01 11:06 | Surgery Progress Note ---
Date of Service January 01, 2019 Assessment & Plan (1) Hernia of abdominal wall: Ji drain removed ok for discharge Subjective tolerating diet, Percocet Physical Exam Vital Signs (Past 24 Hours): Last Vital Signs Temp 37.1 C 01/01/19 07:20 Pulse 77 01/01/19 07:20 Resp 18 01/01/19 07:20 BP 138/78 01/01/19 07:20 Pulse Ox 94 01/01/19 07:20 Gastrointestinal (Abdomen): <10 cc drainage this AM
--- NOTE | 2019-01-04 06:53 | Discharge Summary ---
Date of Service January 06, 2019 Discharge Data Procedures Performed Operation Date: 12/31/18 09:20 Actual Procedures p Laparoscopic Abdominal Wall Repair with SurgMesh and Open Marlex(Right) - Gregorio Buitrago MD, FACS
--- NOTE | 2019-01-04 13:46 | Discharge Summary ---
PRIMARY DISCHARGE DIAGNOSIS: Traumatic abdominal hernia. SECONDARY DISCHARGE DIAGNOSES: 1. Hypertension. 2. Coronary artery disease. PROCEDURE PERFORMED: Laparoscopic abdominal wall repair with Surgimesh and open repair using Marlex mesh. HOSPITAL COURSE: The patient is a 73-year-old male with a traumatic right upper quadrant abdominal wall hernia suffered while coughing. He was taken to the operating room for elective repair. We placed a Surgimesh laparoscopically and Marlex mesh using an open technique to repair a significant intercostal separation in the right upper quadrant. The procedure was well tolerated. He was transferred to the surgical floor for an overnight observation. He was doing well on postoperative day 1. There was minimal Ji drainage overnight and the drain was removed. He was able to tolerate advancing diet and oral analgesics. He was stable for discharge later in the day. Incisions were clean and dry. DISCHARGE INSTRUCTIONS: Discharge home. Follow up with Dr. Buitrago in 1 week. DISCHARGE MEDICATIONS: Percocet 1-2 tablets every 4 hours as needed, Tessalon Perles 100 mg p.o. t.i.d. as needed. Continue home medications of ProAir HFA 2 puffs q.i.d., aspirin 81 mg daily, calcium and vitamin D supplements, lisinopril 5 mg daily, magnesium 250 mg daily, pravastatin 40 mg daily.
== END 2019-01-01 14:00 | disposition home or self-care (01) ==
LOC: ASU 08:08 → 3W 08:08